=== PATIENT | female | born 1995 ===

== ENCOUNTER 2017-01-19 00:16 | Emergency (ER) | payer SELFPAY ==
[2017-01-19 00:27] VITALS: RESP 16; TEMP 97.5
[2017-01-19] MEDS ORDERED: NS 1,000 ML IV ONE (00:29)
[2017-01-19] MEDS ORDERED: ONDANSETRON 4 MG/2 ML VIAL IVP ONE (00:29)
--- NOTE | 2017-01-19 00:29 | EDPHY ---
H & P Stated Complaint: etoh-obtunded HPI/ROS: HPI CHIEF COMPLAINT: Alcohol Intoxication HISTORY OF PRESENT ILLNESS: This patient very pleasant 21-year-old female, intoxicated with alcohol presents emergency room by [employer] and EMS. Patient is highly intoxicated upon arrival. Smells of alcohol slurring her speech. No trauma reported. No other ingestion reported. She was found in the hallway of a dorm. At this time no medical history surgical history as she is too intoxicated. Past Medical History: Unknown Past Surgical History: Unknown Social History: [employer] student Family History: Noncontributory ROS REVIEW OF SYSTEMS: A comprehensive 10 point review of systems is otherwise negative aside from elements mentioned in the history of present illness. Exam Constitutional Intoxicated, triage nursing summary reviewed, vital signs reviewed, Sleepy, smells of alcohol Eyes normal conjunctivae and sclera, horizontal beating nystagmus consistent acute alcohol intoxication, otherwise pupils equal and react to light HENT normal inspection, atraumatic, moist mucus membranes, no epistaxis, neck supple/ no meningismus, no raccoon eyes. Respiratory clear to auscultation bilaterally, normal breath sounds, no respiratory distress, no wheezing. Cardiovascular rate normal, regular rhythm, no murmur, no edema, distal pulses normal. Gastrointestinal soft, non-tender, no rebound, no guarding, normal bowel sounds, no distension, no pulsatile mass. Genitourinary no CVA tenderness. Musculoskeletal no midline vertebral tenderness, full range of motion, no calf swelling, no tenderness of extremities, no meningismus, good pulses, neurovascularly intact. Skin pink, warm, & dry, no rash, skin atraumatic. Neurologic sleepy, intoxicated with alcohol,, alert and oriented x 3, AAOx3, moves all 4 extremities equally, motor intact, sensory intact, CN II-XII intact , , normal vision, normal speech. Psychiatric normal mood/affect. Heme/Lymph/Immune no lymphadenopathy. Differential Diagnosis: Includes but is not limited to in a particular order acute alcohol intoxication, alcohol abuse, dehydration, electrolyte abnormality , nausea vomiting from acute alcohol intoxication Medical Decision Making: IV establishment, IV fluid bolus IV Zofran for nausea , alcohol level. Re-evaluation: 0250AM: Patient's room alcohol level 289. Patient still intoxicated alcohol. 0533AM: Patient ambulated well throughout the emergency room she is clinically sober. Patient d/c to [facility]. Source: Patient, Police, EMS - Personal History LMP (Females 10-55): Unknown Current Tetanus Diphtheria and Acellular Pertussis (TDAP): Unsure - Medical/Surgical History Other PMH: unknown - Social History Smoking Status: Unknown if ever smoked Constitutional: Initial Vital Signs Temperature (C) 36.4 C 01/19/17 00:25 Heart Rate 88 01/19/17 00:25 Respiratory Rate 16 01/19/17 00:25 Blood Pressure 113/58 L 01/19/17 00:25 O2 Sat (%) 94 01/19/17 00:25 O2 Delivery Mode Room Air Allergies/Adverse Reactions: No Known Allergies Allergy (Unverified 01/19/17 05:22) Home Medications: Medication Instructions Recorded NK [No Known Home Meds] 01/19/17 Medical Decision Making - Data Points Laboratory Results: 01/19/17 00:30 Ethyl Alcohol 289 mg/dL H mg/dL (0-10) Medications Given: Discontinued Medications Sodium Chloride (Ns) 1,000 mls @ 0 mls/hr IV ONCE ONE PRN Reason: Wide Open Stop: 01/19/17 00:30 Last Admin: 01/19/17 02:00 Dose: 1,000 mls Ondansetron HCl (Zofran) 4 mg IVP EDNOW ONE Stop: 01/19/17 00:30 Last Admin: 01/19/17 05:02 Dose: Not Given Departure - Departure Disposition: Home, Routine, Self-Care Clinical Impression: Alcoholic intoxication Qualifiers: Complication of substance-induced condition: uncomplicated Qualified Code(s): F10.120 - Alcohol abuse with intoxication, uncomplicated Condition: Good Instructions: Alcohol Intoxication (ED) Referrals: Patient,NotPresent [Primary Care Provider] - As per Instructions
[2017-01-19 01:21] LABS: ETHANOL SERUM 289 mg/dL (0-10)
[2017-01-19 05:22] VITALS: BP 102/67; PULSE 72; O2SAT 97
== END 2017-01-19 06:13 | disposition home or self-care (01) ==
DX: F10.120 Alcohol abuse with intoxication, uncomplicated (principal)
CPT/HCPCS: G0480